=== PATIENT | male | born 1950 | race Caucasian/White ===

== ENCOUNTER 2017-01-27 12:13 | Emergency (ER) | payer OTHER ==
[~2017-01-27] VITALS: Ht 180.3 cm; Wt 119.0 kg
[2017-01-27 12:22] VITALS: BP 191/78; PULSE 62; RESP 16; TEMP 97.6; O2SAT 94
[2017-01-27] MEDS ORDERED: HYDR25TA5 PO (12:36)
[2017-01-27] MEDS ORDERED: GLIP5TAB8 PO (12:36)
[2017-01-27] MEDS ORDERED: ATOR40TA16 PO (12:36)
[2017-01-27] MEDS ORDERED: LANTUS2P SQ (12:36)
[2017-01-27] MEDS ORDERED: GABA300C5 PO (12:36)
[2017-01-27] MEDS ORDERED: INSU100V2 SQ ×2 (12:36)
[2017-01-27] MEDS ORDERED: PRAV20TA2 PO (12:36)
[2017-01-27] MEDS ORDERED: ASPI81CH CHEW (12:41)
--- NOTE | 2017-01-27 13:04 | PD ---
HPI Chief Complaint: Musculoskeletal Complaint Time Seen by Provider: 12:45 Travel History International Travel<30 days: No Contact w/Intl Traveler<30days: No Traveled to known affect area: No History of Present Illness HPI 58-year-old male with multiple injuries secondary to mechanical fall that occurred Saturday. States he fell head first into a stucco wall, jammed his left little finger, and subsequently fell onto his knees. States he has felt fine but over the weekend has developed some neck pain that increases with movement and relieved with rest. Denies LOC, headache, dizziness, blurred vision. Denies weakness or numbness, tingling of his extremities. Complains of left little finger pain with bruising but has full range of motion without crepitus or paresthesias. He has not taken any medication to reduce his pain. He has a history of diabetes with neuropathy. He does not remember when he had his last tetanus shot and he is not on anticoagulants. PFSH Past Medical History Cancer: Yes High Cholesterol: Yes Chemotherapy: Yes Diabetes: Yes Patient Takes Glucophage: Yes Diminished Hearing: Yes (hearing aides) Hypertension: Yes Tetanus Vaccination: > 5 Years Influenza Vaccination: Yes Past Surgical History Abdominal Surgery: Yes (colon resection , colon cancer ) Cardiac Surgery: Yes (bypass) Social History Alcohol Use: No Tobacco Use: No (quit 25 years ago) Substance Use: No Allergies-Medications (Allergen,Severity, Reaction): Coded Allergies: No Known Allergies (Unverified , 01/27/17) Reported Meds & Prescriptions Reported Meds & Active Scripts Active Reported Aspirin 81 Mg Chew 81 Mg CHEW DAILY Gabapentin 300 Mg Cap 600 Mg PO TID Lantus Inj (Insulin Glargine) 1,000 Unit/10 Ml Vial 60 Units SQ HS Humulin R Inj (Insulin Human Regular) 1,000 Unit/10 Ml Vial 25 Units SQ HS Humulin R Inj (Insulin Human Regular) 1,000 Unit/10 Ml Vial 15 Units SQ ONCE Glipizide 5 Mg Tab 5 Mg PO DAILY Take 30 minutes before a meal Pravastatin 20 Mg Tab 20 Mg PO HS Atorvastatin (Atorvastatin Calcium) 40 Mg Tab 40 Mg PO HS Hydrochlorothiazide 25 Mg Tab 25 Mg PO DAILY Review of Systems Except as stated in HPI: all other systems reviewed are Neg Physical Exam Narrative GENERAL: Well-developed well-nourished SKIN: Focused skin assessment warm/dry. 1 cm healing laceration to frontal portion of scalp bleeding controlled. Left knee with superficial abrasions without signs of infection. HEAD: Normocephalic. EYES: Pupils equal and round. No scleral icterus. No injection or drainage. ENT: No nasal bleeding or discharge. Mucous membranes pink and moist. NECK: Trachea midline. No JVD. No midline TTP, mild TTP to paraspinal muscles with associated muscle spasms CARDIOVASCULAR: Regular rate and rhythm. No murmur appreciated. RESPIRATORY: No accessory muscle use. Clear to auscultation. Breath sounds equal bilaterally. GASTROINTESTINAL: Abdomen soft, non-tender, nondistended. Hepatic and splenic margins not palpable. MUSCULOSKELETAL: No obvious deformities. No clubbing. No cyanosis. No edema. Left little finger: ecchymotic, FROM active and passive, neuro intact, brisk cap refill. BL knees: FROM without crepitus or pain. NEUROLOGICAL: Awake and alert. No obvious cranial nerve deficits. Motor grossly within normal limits. Normal speech. PSYCHIATRIC: Appropriate mood and affect; insight and judgment normal. Data Data Last Documented VS Vital Signs Date Time Temp Pulse Resp B/P (MAP) Pulse Ox O2 Delivery O2 Flow Rate FiO2 01/27/17 14:32 01/27/17 14:09 60 16 95 Room Air 01/27/17 12:[address] Brain W/O Iv Contrast(Rout) (01/27/17 ) Ct Cerv Spine W/O Contrast (01/27/17 ) Finger (Csp2aum) (01/27/17 ) Knee, Ltd (1 Or 2vws) (01/27/17 ) Knee, Ltd (1 Or 2vws) (01/27/17 ) Splint Or Brace Apply/Monitor (01/27/17 13:54) Tetanus/Diphtheria Tox Adult (Tetanus/Di (01/27/17 14:30) Finger Splint (01/27/17 ) MDM Medical Decision Making Medical Screen Exam Complete: Yes Emergency Medical Condition: Yes Differential Diagnosis Concussion versus muscle spasm of the neck versus knee contusion Narrative Course 66-year-old male presents to emergency department status post fall 2 days ago. States he has felt fine but over the weekend has developed some neck pain but denies LOC, headache, dizziness, blurred vision. Says he does not have weakness or numbness, tingling of his extremities. No oral anticoagulants. Physical exam: Well-developed well-nourished in no apparent distress. He had a 1 cm, healing laceration to his scalp well approximated, without bleeding or signs of infection. Neck exam notable for mild tenderness to the musculature of the neck with associated muscle spasm, no midline tenderness. Left little finger ecchymotic and slightly edematous. Imaging studies head CT, neck CT without acute process. Patient to follow-up with primary care physician regarding other findings. Left finger fracture: Advised patient to follow up with his primary care physician and hand specialist for evaluation and treatment of his left finger. He was splinted in the emergency department. Muscle relaxer for neck pain. Follow up with your PCP within 2 days. Diagnosis Primary Impression: Finger fracture, left Qualified Codes: S62.667A - Nondisplaced fracture of distal phalanx of left little finger, initial encounter for closed fracture Additional Impression: Contusion, knee Qualified Codes: S80.00XA - Contusion of unspecified knee, initial encounter Referrals: Hand Surgeon Primary Care Physician Additional Instructions: Follow-up with her primary care physician for treatment of your pinky finger. Keep your finger splint in place for 3-4 weeks. He may remove to shower however avoid bending the finger. Elevate, ice finger as needed for pain. Use muscle relaxers sparingly for your neck pain. Perform light stretches. If you develop nausea, vomiting, dizziness, headaches turn to the emergency department for further treatment and evaluation. Disposition: 01 DISCHARGE HOME Condition: Stable Renetta Velasquez Jan 27, 2017 13:04
--- NOTE | 2017-01-27 13:39 | RADRPT ---
EXAM DATE/TIME: 01/27/2017 13:18 [facility] COMPARISON: No previous studies available for comparison. INDICATIONS : Fell on steps and hit head on wall. RADIATION DOSE: 57.47 CTDIvol (mGy) MEDICAL HISTORY : Cardiovascular disease. Hypertension. Carcinoma, colon.Diabetes. SURGICAL HISTORY : CABG Colon resection. ENCOUNTER: Initial ACUITY: 1 day PAIN SCALE: 5/10 LOCATION: cranial TECHNIQUE: Multiple contiguous axial images were obtained of the head. Using automated exposure control and adj ustment of the mA and/or kV according to patient size, radiation dose was kept as low as reasonably a chievable to obtain optimal diagnostic quality images. DICOM format image data is available electro nically for review and comparison. FINDINGS: CEREBRUM: The ventricles are normal for age. No evidence of midline shift, mass lesion, hemorrhage or acute in farction. No extra-axial fluid collections are seen. POSTERIOR FOSSA: The cerebellum and brainstem are intact. The 4th ventricle is midline. The cerebellopontine angle i s unremarkable. EXTRACRANIAL: The visualized portion of the orbits is intact. SKULL: The calvaria is intact. No evidence of skull fracture. CONCLUSION: Normal examination. Evans Proctor MD on January 27, 2017 at 13:33 Board Certified Radiologist. This report was verified electronically.
--- NOTE | 2017-01-27 13:44 | RADRPT ---
EXAM DATE/TIME: 01/27/2017 13:18 [facility] COMPARISON: No previous studies available for comparison. INDICATIONS : Fell n steps and hit head on wall. Posterior neck pain radiaitng bilaterally down shoulders. RADIATION DOSE: 26.67 CTDIvol (mGy) MEDICAL HISTORY : Cerebrovascular disease. Hypertension. Carcinoma, colon.Diabetes. SURGICAL HISTORY : CABG Colon resection. ENCOUNTER: Initial ACUITY: 1 day PAIN SCALE: 5/10 LOCATION: neck TECHNIQUE: Volumetric scanning of the cervical spine was performed. Multiplanar reconstructions in the sagittal, coronal and oblique axial planes were performed. Using automated exposure control and adjustment o f the mA and/or kV according to patient size, radiation dose was kept as low as reasonably achievable to obtain optimal diagnostic quality images. DICOM format image data is available electronically f or review and comparison. FINDINGS: Cervical spine alignment is satisfactory. There is no evidence of cervical spine fracture. There is n o evidence of paraspinal mass or hematoma. There is moderately severe degenerative change with disc s pace narrowing and endplate osteophyte formation most conspicuously at C5-6. Multilevel facet arthrop athy is noted, generally worse on the left than the right. There is a 2.4 cm low-density mass involvi ng the right lobe of the thyroid. CONCLUSION: No acute bony injury in the cervical spine Evans Proctor MD on January 27, 2017 at 13:38 Board Certified Radiologist. This report was verified electronically.
--- NOTE | 2017-01-27 13:52 | RADRPT ---
EXAM DATE/TIME: 01/27/2017 13:30 [facility] COMPARISON: No previous studies available for comparison. INDICATIONS : Fell, has left 5th finger pain, states worse at tip of finger MEDICAL HISTORY : Carcinoma, colon. Diabetes mellitus type II. SURGICAL HISTORY : CABG. ENCOUNTER: Initial ACUITY: 1 day PAIN SCORE: 6/10 LOCATION: Left 5th finger FINDINGS: The examination demonstrates a comminuted fracture of the tip of the fifth distal phalanx. The remain howie of the osseous structures are intact. CONCLUSION: 1. Comminuted fracture of the tip of the fifth distal phalanx. Art Finn MD on January 27, 2017 at 13:50 Board Certified Radiologist. This report was verified electronically.
--- NOTE | 2017-01-27 13:58 | RADRPT ---
EXAM DATE/TIME: 01/27/2017 13:35 [facility] COMPARISON: FINGER LEFT 5TH DIGIT ([id number]), January 27, 2017, 13:30. INDICATIONS : Fell, has bilaeral knee pain MEDICAL HISTORY : Carcinoma, colon. Diabetes mellitus type II. SURGICAL HISTORY : CABG. ENCOUNTER: Initial ACUITY: 1 day PAIN SCORE: 6/10 LOCATION: Left knee FINDINGS: The examination demonstrates mild tricompartmental osteoarthritis. No acute fractures seen. No signif icant joint effusion is present. There is advanced atherosclerotic plaquing throughout the distal superficial femoral and popliteal ar teries. CONCLUSION: 1. Degenerative changes. No acute fracture identified. Art Finn MD on January 27, 2017 at 13:56 Board Certified Radiologist. This report was verified electronically.
--- NOTE | 2017-01-27 13:59 | RADRPT ---
EXAM DATE/TIME: 01/27/2017 13:38 [facility] COMPARISON: KNEE LEFT LTD (1 OR 2VWS), January 27, 2017, 13:35. INDICATIONS : Fell, has bilateral knee pain MEDICAL HISTORY : Carcinoma, colon. Diabetes mellitus type II. SURGICAL HISTORY : CABG. ENCOUNTER: Initial ACUITY: 1 day PAIN SCORE: 6/10 LOCATION: Right knee FINDINGS: The examination demonstrates mild tricompartmental osteoarthritis. There is no acute fracture. There is a small joint effusion. There is advanced atherosclerotic plaquing throughout the distal superficial femoral and popliteal ar teries. CONCLUSION: 1. Tricompartmental osteoarthritis. No acute fracture identified. Art Finn MD on January 27, 2017 at 13:57 Board Certified Radiologist. This report was verified electronically.
[2017-01-27 14:09] VITALS: BP 134/61; PULSE 60; RESP 16; O2SAT 95
[2017-01-27] MEDS ORDERED: TETANUS/DIPHTHERIA TOXOID ADULT 0.5 ML VIAL IM ONE (14:30)
== END 2017-01-27 14:45 | disposition home or self-care (01) ==
LOC: PHEFT 12:13
DX: S62.667A Nondisplaced fracture of distal phalanx of left little finger, initial encounter for closed fracture (principal); S80.02XA Contusion of left knee, initial encounter; S80.01XA Contusion of right knee, initial encounter; S01.01XA Laceration without foreign body of scalp, initial encounter; M54.2 Cervicalgia; M62.838 Other muscle spasm; E11.40 Type 2 diabetes mellitus with diabetic neuropathy, unspecified; I10 Essential (primary) hypertension; E78.00 Pure hypercholesterolemia, unspecified; W19.XXXA Unspecified fall, initial encounter; Y99.0 Civilian activity done for income or pay; Z23 Encounter for immunization; Z79.4 Long term (current) use of insulin
CPT/HCPCS: 29130; 70450; 72125; 73140; 73560; 90471; 90714